=== PATIENT | male | born 1960 | race Caucasian/White ===

== ENCOUNTER 2024-02-10 18:40 | Emergency (ER) | payer SELFPAY ==
[2024-02-10 18:48] VITALS: BP 135/78; PULSE 73; RESP 16; TEMP 36.4; O2SAT 98
--- NOTE | 2024-02-10 22:34 | PC.NURSE ---
pt daughter to intake desk, he is going to go ahead and leave.
== END 2024-02-10 22:52 | disposition left against medical advice (07) ==
LOC: ANHED 22:41
PROVIDERS: PCP Physician Assistant
DX: R10.9 Unspecified abdominal pain (principal); Z53.21 Procedure and treatment not carried out due to patient leaving prior to being seen by health care provider
CPT/HCPCS: 99199